=== PATIENT | female | born 1965 | race Asian ===

== ENCOUNTER 2023-09-06 14:28 | Emergency (ER) | payer MEDICAID, SELFPAY ==
[2023-09-06 14:31] VITALS: BP 147/107; PULSE 114; RESP 18; TEMP 37.2; O2SAT 96
--- NOTE | 2023-09-06 14:42 | ED_ITS ---
HPI - Dental/Oral General Chief complaint: Dental/Oral/Mouth Injury/Pain Stated complaint: swelling mouth Time Seen by Provider: 09/06/23 14:34 History of Present Illness HPI Narrative: This 58-year-old female comes in with family members because of pain and swelling in her right jaw. She went to urgent care and was sent here with concern about the swelling. The patient arrives here with normal vital signs except for some tachycardia. She does not have any report of fever. She does have dental pain and had difficulty sleeping last night due to that. She has some mild swelling of the cheek overlying the right mandible. Her symptoms began yesterday and have worsened since then. Related Data Home Medications ?Medication ?Instructions ?Recorded ?Confirmed metformin 500 mg tablet,extended 1,000 mg PO BID 09/06/23 09/06/23 release 24 hr Previous Rx's ?Medication ?Instructions ?Recorded amoxicillin 500 mg capsule 500 mg PO TID 7 days #21 caps 09/06/23 ketorolac 10 mg tablet 10 mg PO Q8H 5 days #15 tabs 09/06/23 Allergies Allergy/AdvReac Type Severity Reaction Status Date / Time No Known Drug Allergies Allergy Verified 09/06/23 14:34 Review of Systems Status of ROS: Reports: 10 or more systems reviewed and unremarkable except as noted in History and below Narrative: Constitutional: No fevers, no weight gain or loss. Eyes: No discharge. No vision changes. HENT: No congestion, no sore throat, no ear pain. Dental pain as described above. Cardiovascular: No chest pain, no palpitations. Respiratory: No shortness of breath, no wheezes, no cough. Gastrointestinal: No abdominal pain, no vomiting, no diarrhea. Genitourinary: No dysuria, no hematuria. Musculoskeletal: Normal range of motion. Skin: No rashes, no pruritis. Neurological: No dizziness, weakness, sensory change, speech change. Endo/Heme/Allergies: No bruising or bleeding. No polydipsia. Pysch: no suicidality, no anxiety, no insomnia. All other systems reviewed and are negative. Exam Narrative: Exam Narrative: Constitutional: Well-developed, well-nourished, no acute distress. HEENT: Normocephalic, atraumatic. Mild swelling of the right lower cheek overlying the right mandible area where she reports dental pain. Oral exam shows no sign of drainable abscess. There is no palpable abscess or swelling in her cheek and anterior neck. Neck: Normal range of motion. Nontender. Supple. Heart: Regular. No murmurs. Normal rate. Intact distal pulses. Lungs: Clear to auscultation. No chest discomfort. No wheezes, rhonchi, or rales. Abdomen: Normal bowel sounds. Nontender. No rebound tenderness. Genitalia: Deferred. Back: No midline tenderness. Normal range of motion. Extremities: Normal range of motion. No injury. Skin: Intact. No rash. Warm. No erythema or pallor. Neurologic: No altered sensation. No weakness. Alert and oriented. Psychiatric: No suicidality. No anxiety or depression. No insomnia. Nursing notes and vitals signs are reviewed. Const: Vital Signs, click to edit/add: Vital Signs - 24 hr 09/06/23 14:31 Temperature 98.9 F Pulse Rate [Right Pulse Oximeter] 114 H Respiratory Rate 18 Blood Pressure [Ri ght Upper Arm] 147/107 H Pulse Oximetry 96 Oxygen Delivery Me thod Room Air Course Vital Signs Vital signs: Initial Vital Signs Temperature 98.9 F 09/06/23 14:31 Temperature Source Temporal Artery Scan 09/06/23 14:31 Pulse Rate 114 H 09/06/23 14:31 Respiratory Rate 18 09/06/23 14:31 Blood Pressure 147/107 H 09/06/23 14:31 Blood Pressure Mean 120 H 09/06/23 14:31 Blood Pressure Position Sitting 09/06/23 14:31 Pulse Oximetry 96 09/06/23 14:31 Oxygen Delivery Method Room Air 09/06/23 14:31 Vital Signs Temperature 98.9 F 09/06/23 14:31 Pulse Rate 114 H 09/06/23 14:31 Respiratory Rate 18 09/06/23 14:31 Blood Pressure 147/107 H 09/06/23 14:31 Pulse Oximetry 96 09/06/23 14:31 Oxygen Delivery Method Room Air 09/06/23 14:31 Temperature 98.9 F 09/06/23 14:31 Pulse Rate 114 H 09/06/23 14:31 Respiratory Rate 18 09/06/23 14:31 Blood Pressure 147/107 H 09/06/23 14:31 Pulse Oximetry 96 09/06/23 14:31 Oxygen Delivery Method Room Air 09/06/23 14:31 MDM - Dental/Oral MDM Narrative Medical decision making narrative: This patient comes in with pain and swelling in her right jaw and surrounding tissues. She does have dental pain and is describing some swelling overlying this area which may indicate an abscess. There is no palpable or observable abscess that would be drainable at this time. I advised the patient to follow- up with her dentist as soon as possible. She did receive a prescription for amoxicillin and Toradol. Discharge Plan Discharge Clinical Impression: Dental abscess Patient Disposition: Home w/ Parent or Adult Condition: Stable Additional Instructions: Take medication as prescribed. Follow-up with dentist as soon as possible. Return if worsening. Prescriptions: New amoxicillin 500 mg capsule 500 mg PO TID 7 Days Qty: 21 0RF ketorolac 10 mg tablet 10 mg PO Q8H 5 Days Qty: 15 0RF No Action metformin 500 mg tablet extended release 24 hr 1,000 mg PO BID Stand Alone Forms: [email or web address] Info Instructions
== END 2023-09-06 15:12 | disposition home or self-care (01) ==
LOC: ED 15:01
PROVIDERS: Emergency Provider Emergency Medicine Emergency Medical Services
DX: K04.7 Periapical abscess without sinus (principal)
CPT/HCPCS: 99283; 99284

== ENCOUNTER 2023-10-17 12:36 | Emergency (ER) | payer MEDICAID, SELFPAY ==
[2023-10-17 12:44] VITALS: BP 136/80; PULSE 104; RESP 22; TEMP 36.3; O2SAT 96; BMI 20.8
--- NOTE | 2023-10-17 13:11 | CRLHL7_ITS ---
For Patients: As a result of the Century Cures Act, medical imaging exams and procedure reports are released immediately into your electronic medical record. You may view this report before your referring provider. If you have questions, please contact your health care provider. LEFT BREAST ULTRASOUND CLINICAL HISTORY: LEFT BREAST DRAINING Abscess. COMPARISON: None. TECHNIQUE: Real-time ultrasound imaging of LEFT breast with imaging documentation. FINDINGS: Targeted sonogram to the area of concern LEFT breast 4 o`clock 5 cm from the nipple performed. Epidermal skin thickening noted with heterogeneous tissue/fluid within the epidermal layer measuring approximately 2.3 cm. No suspicious mass within the deeper tissues. IMPRESSION: Inflammatory change within the LEFT breast skin layer 4 o`clock 5 cm from the nipple. RECOMMENDATIONS: Clinical follow-up and correlation with mammography. BI-RADS Category 0: Incomplete: Need Additional Imaging Evaluation and/or Prior Mammograms for Comparison Dictated by Musa Perera MD @ 10/17/2023 2:03:33 PM/CRL:sandor FLYNN/Dictated by: Musa Perera MD @ 10/17/2023 2:03:00 PM (Electronically Signed)
--- NOTE | 2023-10-17 13:43 | ED.SKABFB ---
HPI - Skin/Abscess/Foreign Bdy General Date Seen: 10/17/23 Chief complaint: Skin/Abscess/Foreign Body Stated complaint: MRSA infection - Time Seen by Provider: 10/17/23 12:47 Source: patient and family Mode of arrival: ambulatory Limitations: language barrier History of Present Illness HPI narrative: Patient is a 58-year-old female who presents here, with the draining left breast. She was in her clinic 2 days ago and started on what I am able to figure out his Bactrim twice daily for presumed MRSA. She tells me she has lesions also on her body, which are at various stages of healing, she has had no fevers or chills but her left breast is draining. [facility] [place]. By Dr. Urrutia. I do have a note no culture was done there. She apparently has had a previous right breast draining area, Unsure family is of whether she has had previous mammograms. History of a hemiparesis of the right side secondary a CVA, history of migraines, history of paralysis, history of type 2 diabetes, History of EGD, history of abdominal hysterectomy, Patient speaks Arabic, [place] dialect, her son and daughter interpret for her Related Data Home Medications ?Medication ?Instructions ?Recorded ?Confirmed metformin 500 mg tablet,extended 1,000 mg PO BID 09/06/23 09/06/23 release 24 hr Previous Rx's ?Medication ?Instructions ?Recorded amoxicillin 500 mg capsule 500 mg PO TID 7 days #21 caps 09/06/23 ketorolac 10 mg tablet 10 mg PO Q8H 5 days #15 tabs 09/06/23 Allergies Allergy/AdvReac Type Severity Reaction Status Date / Time No Known Drug Allergies Allergy Verified 09/06/23 14:34 Review of Systems Status of ROS: Reports: 6 or more systems reviewed and unremarkable except as noted in History and below Exam Narrative: Exam Narrative: On examination there is the area of approximately 6 x 3 cm on her left breast with draining at the 3 o'clock position. There was outside redness around this. I do not feel evidence of mass. Under left axilla as normal she has some other lesions on her abdomen which are in various stages of healing, they look like they have been picked at. Const: Vital Signs, click to edit/add: Vital Signs - 24 hr 10/17/23 12:44 Temperature 97.3 F L Pulse Rate [Right Pulse Oximeter] 104 H Respiratory Rate 22 Blood Pressure [Ri ght Upper Arm] 136/80 Pulse Oximetry 96 Oxygen Delivery Me thod Room Air Documenting provider has reviewed patient's vital signs: yes Course Vital Signs Vital signs: Initial Vital Signs Temperature 97.3 F L 10/17/23 12:44 Temperature Source Temporal Artery Scan 10/17/23 12:44 Pulse Rate 104 H 10/17/23 12:44 Respiratory Rate 22 10/17/23 12:44 Blood Pressure 136/80 10/17/23 12:44 Blood Pressure Mean 98 10/17/23 12:44 Blood Pressure Position Sitting 10/17/23 12:44 Pulse Oximetry 96 10/17/23 12:44 Oxygen Delivery Method Room Air 10/17/23 12:44 Vital Signs Temperature 97.3 F L 10/17/23 12:44 Pulse Rate 104 H 10/17/23 12:44 Respiratory Rate 22 10/17/23 12:44 Blood Pressure 136/80 10/17/23 12:44 Pulse Oximetry 96 10/17/23 12:44 Oxygen Delivery Method Room Air 10/17/23 12:44 Temperature 97.3 F L 10/17/23 12:44 Pulse Rate 104 H 10/17/23 12:44 Respiratory Rate 22 10/17/23 12:44 Blood Pressure 136/80 10/17/23 12:44 Pulse Oximetry 96 10/17/23 12:44 Oxygen Delivery Method Room Air 10/17/23 12:44 MDM - Skin/Abscess/Foreign Bdy MDM Narrative Medical decision making narrative: I did talk to my surgeon Dr. Beck about her, she recommended ultrasound which the report is pending, preliminary via the tech is there is no evidence of an abscess. Or mass. She is afebrile, nontoxic. I do believe Bactrim is a decent choice for this. And then follow-up with surgery, my surgeon recommended just dressing changes, she would not use bacitracin on here. Until it heals up. I have made an appointment for her to see at 3:15 a.m. on October 19. At the [facility] here, with General surgery. Medical Records Attestation: I reviewed the patient's medical records. Discharge Plan Discharge Clinical Impression: Cellulitis, Abscess of skin or subcutaneous tissue Patient Disposition: Home w/ Parent or Adult Condition: Stable Instructions: Cellulitis (ED), Abscess Follow-up (ED), Warm Compress or Soak (ED) Additional Instructions: Patient to follow-up with surgery as per above. Continue with Bactrim, return as needed for increasing redness fevers chills. Appointment on October 19, at 3:15 a.m., with Doctor Billy general surgery At the [facility] here Prescriptions: No Action metformin 500 mg tablet extended release 24 hr 1,000 mg PO BID amoxicillin 500 mg capsule 500 mg PO TID 7 Days Qty: 21 0RF ketorolac 10 mg tablet 10 mg PO Q8H 5 Days Qty: 15 0RF Follow Up/Referrals: Provider,Not a Local [Primary Care Provider] - Stand Alone Forms: [employer] Info Instructions
== END 2023-10-17 15:00 | disposition home or self-care (01) ==
LOC: ED 14:31
PROVIDERS: Emergency Provider Family Medicine
DX: N61.1 Abscess of the breast and nipple (principal)
CPT/HCPCS: 76642; 99284